=== PATIENT | female | born 1930 | race Caucasian/White ===

== ENCOUNTER → 2016-05-27 | Outpatient (REF) | payer MEDICARE, MEDICAID ==
[~2016-05-27] MED LIST: /AMLO25TA OR; ALEN70TA39 PO; AMLO5TAB2 PO; CAPE1TAB2 PO; CIPR500T89 PO; COLA100C PO; DIOV320T PO; DITR5TAB PO; DOCU10CA PO; FLAG500T PO; FLEETOIL PR; MAPA325T2 PO; MICR10CA PO; MILKSUS PO; MIRA3350 PO; MULTTAB63 PO; ONDA1TAB15 PO; OXYB5TAB PO; PANT40TA2 PO; PEG1POW PO; PIND10TA PO; TUMS500C PO; TYLE650T35 PO; VITA100072 PO; VITA50003 PO; VITA500047 PO
[2016-05-27 08:48] LABS: BASO # 0.1 K/mm3 (0.0-0.2); BASO % 1.2 % (0.0-1.0); EOS # 0.2 K/mm3 (0.0-0.50); EOS % 3.9 % (0.0-3.0); LARGE UNSTAINED CELL # 0.1 K/mm3 (0.0-0.4); LARGE UNSTAINED CELL % 1.7 % (0.0-4.0); LYMPH # 0.6 K/mm3 (1.5-4.5); LYMPH % 10.6 % (24.0-44.0); MEAN CORPUSCULAR HEMOGLOBIN 27.7 pg (27.0-33.0); MEAN CORPUSCULAR HGB CONC 31.4 g/dl (32.0-36.5); MEAN CORPUSCULAR VOLUME 88.2 fl (80.0-96.0); MONO # 0.3 K/mm3 (0.0-0.8); MONO % 6.1 % (0.0-5.0); NEUTROPHILS # 3.8 K/mm3 (1.8-7.7); NEUTROPHILS % 76.6 % (36.0-66.0); PLATELET COUNT, AUTOMATED 252 k/mm3 (150-450); RED CELL DISTRIBUTION WIDTH 17.2 % (11.5-14.5)
== END | disposition home or self-care (01) ==
LOC: SKLAB6 07:00
PROVIDERS: ATTEND Family Medicine
DX: K62.5 Hemorrhage of anus and rectum (principal)

== ENCOUNTER → 2016-06-19 | Outpatient (REF) | payer MEDICARE, MEDICAID | END | disposition home or self-care (01) | LOC: SKLAB6 15:20 | PROVIDERS: ATTEND Family Medicine | DX: R19.7 Diarrhea, unspecified (principal) ==

== ENCOUNTER → 2016-06-24 | Outpatient (REF) | payer MEDICARE, MEDICAID ==
[2016-06-24 08:34] LABS: BASO % 0.5 % (0.0-1.0); EOS # 0.2 K/mm3 (0.0-0.50); LARGE UNSTAINED CELL # 0.1 K/mm3 (0.0-0.4); LARGE UNSTAINED CELL % 1.7 % (0.0-4.0); LYMPH # 0.6 K/mm3 (1.5-4.5); LYMPH % 9.9 % (24.0-44.0); MEAN CORPUSCULAR HEMOGLOBIN 28.5 pg (27.0-33.0); MEAN CORPUSCULAR HGB CONC 31.5 g/dl (32.0-36.5); MEAN CORPUSCULAR VOLUME 90.5 fl (80.0-96.0); MONO # 0.3 K/mm3 (0.0-0.8); MONO % 5.4 % (0.0-5.0); NEUTROPHILS # 4.1 K/mm3 (1.8-7.7); NEUTROPHILS % 79.5 % (36.0-66.0); PLATELET COUNT, AUTOMATED 241 k/mm3 (150-450); RED CELL DISTRIBUTION WIDTH 15.9 % (11.5-14.5); WHITE BLOOD COUNT 5.1 K/mm3 (4.0-10.0)
== END | disposition home or self-care (01) ==
LOC: SKLAB6 07:00
PROVIDERS: ATTEND Family Medicine
DX: K62.5 Hemorrhage of anus and rectum (principal)

== ENCOUNTER → 2016-10-21 | Outpatient (REF) | payer MEDICARE, MEDICAID ==
[~2016-10-21] MED LIST changes: -COLA100C PO; +COLA100C3 PO
[2016-10-21 09:59] LABS: MEAN CORPUSCULAR HEMOGLOBIN 26.5 pg (27.0-33.0); MEAN CORPUSCULAR HGB CONC 31.3 g/dl (32.0-36.5); MEAN CORPUSCULAR VOLUME 84.5 fl (80.0-96.0); RED CELL DISTRIBUTION WIDTH 15.6 % (11.5-14.5); WHITE BLOOD COUNT 5.6 K/mm3 (4.0-10.0)
[2016-10-21 10:16] LABS: CALCIUM LEVEL 8.7 MG/DL (8.8-10.2)
== END ==
LOC: SKLAB6 08:00
PROVIDERS: ATTEND Family Medicine
DX: Z51.81 Encounter for therapeutic drug level monitoring (principal); Z79.899 Other long term (current) drug therapy

== ENCOUNTER → 2016-11-13 | Outpatient (REF) | payer MEDICARE, MEDICAID ==
[~2016-11-13] MED LIST changes: +BISA10SU4 PR; -COLA100C3 PO; +COLA100C5 PO; +ENEM1ENE4 PR; +FEVE650S3 PR; +LEXA1TAB2 PO; -ONDA1TAB15 PO; +ONDA4TAB5 PO; +PERC5TAB12 PO; +PROC25SU24 PR; +PROTPAK PO; +SENN8.6T54 PO; +TYLE325T5 PO; +TYLE500T78 PO; +VITA1CAP40 PO; -VITA50003 PO; +ZOFR20TA PO; +ZOFR4TAB3 PO
[2016-11-13 07:00] LABS: MEAN CORPUSCULAR HEMOGLOBIN 25.6 pg (27.0-33.0); MEAN CORPUSCULAR HGB CONC 30.9 g/dl (32.0-36.5); MEAN CORPUSCULAR VOLUME 82.6 fl (80.0-96.0); RED CELL DISTRIBUTION WIDTH 16.3 % (11.5-14.5); WHITE BLOOD COUNT 7.2 K/mm3 (4.0-10.0)
[2016-11-13 07:20] LABS: CREATININE FOR GFR 1.13 MG/DL (0.55-1.02); GLOMERULAR FILTRATION RATE 48.6 (>32); POTASSIUM SERUM 3.6 MEQ/L (3.5-5.1)
== END ==
LOC: M LAB 01:05
PROVIDERS: ATTEND Family Medicine
DX: R50.9 Fever, unspecified (principal); R61 Generalized hyperhidrosis; R09.02 Hypoxemia

== ENCOUNTER → 2016-11-13 | Outpatient (REF) ==
--- NOTE | 2016-11-13 10:10 | REP ---
Clinical: Hypoxemia . Comparison: 04/21/2016 . Technique: Portable AP semiupright view Findings: The mediastinum and cardiac silhouette are normal. The lung cesar demonstrate diffuse chronic interstitial changes without acute consolidation, effusion, or pneumothorax. Previously identified 10 mm nodule in the right mid lung zone is not visualized by current examination. The skeletal structures are intact and normal. Impression: 1. No acute cardiopulmonary process. Signed by Abdon Haynes MD 11/13/2016 10:01 A
== END ==
LOC: SKLAB6 09:14 → M RAD 09:14
PROVIDERS: ATTEND Family Medicine
DX: R50.9 Fever, unspecified (principal)

== ENCOUNTER → 2016-11-14 | Outpatient (REF) | LOC: SKLAB6 14:24 | PROVIDERS: ATTEND Family Medicine | DX: R71.8 Other abnormality of red blood cells (principal) ==

== ENCOUNTER → 2016-11-14 | Outpatient (REF) | payer MEDICARE, MEDICAID | LOC: SKLAB6 02:06 | PROVIDERS: ATTEND Family Medicine | DX: D64.9 Anemia, unspecified (principal) ==

== ENCOUNTER 2016-11-15 10:10 | Outpatient (REF) ==
[~2016-11-15] VITALS: Ht 152.4 cm; Wt 47.8 kg
[2016-11-15] VITALS (8 sets, daily range): BP systolic 119–153; BP diastolic 52–64
[~2016-11-15 10:10] MED LIST changes: +ACETAMINOPHEN TAB 650MG DOSE (2X325MG) PO SCH; -BISA10SU4 PR; -ENEM1ENE4 PR; -FEVE650S3 PR; -LEXA1TAB2 PO; -PERC5TAB12 PO; -PROC25SU24 PR; -PROTPAK PO; -SENN8.6T54 PO; -TYLE325T5 PO; -TYLE500T78 PO; -ZOFR20TA PO; -ZOFR4TAB3 PO; +diphenhydrAMINE 25 MG CAP PO SCH
[2016-11-15] MEDS: FUROSEMIDE 20 MG/2 ML VIAL (J1940) IV SCH ×2 (12:44→14:33)
[2017-03-17] MEDS ORDERED: PROC25SU24 PR (19:37)
[2017-03-17] MEDS ORDERED: TYLE325T5 PO (19:37)
[2017-03-17] MEDS ORDERED: PROTPAK PO (19:37)
[2017-03-17] MEDS ORDERED: MILKSUS PO (19:37)
[2017-03-17] MEDS ORDERED: TUMS500C PO (19:37)
[2017-03-17] MEDS ORDERED: ZOFR20TA PO (19:37)
[2017-03-17] MEDS ORDERED: ZOFR4TAB3 PO (19:37)
[2017-03-17] MEDS ORDERED: FEVE650S3 PR (19:37)
[2017-03-17] MEDS ORDERED: TYLE500T78 PO (19:37)
[2017-03-17] MEDS ORDERED: LEXA1TAB2 PO (19:37)
[2017-03-17] MEDS ORDERED: SENN8.6T54 PO (19:37)
[2017-03-17] MEDS ORDERED: ENEM1ENE4 PR (19:37)
[2017-03-17] MEDS ORDERED: BISA10SU4 PR (19:37)
[2017-03-17] MEDS ORDERED: PERC5TAB12 PO (21:38)
== END 2016-11-15 15:51 ==
LOC: M OPCLI4PV 10:10 → M MSPAV 10:17 → M OPCLI4PV 15:51
PROVIDERS: ATTEND Family Medicine
DX: D64.9 Anemia, unspecified (principal); Z88.2 Allergy status to sulfonamides; Z88.8 Allergy status to other drugs, medicaments and biological substances

== ENCOUNTER → 2016-11-17 | Outpatient (REF) | payer MEDICARE, MEDICAID ==
[~2016-11-17] MED LIST changes: -ACETAMINOPHEN TAB 650MG DOSE (2X325MG) PO SCH; +BISA10SU4 PR; +ENEM1ENE4 PR; +FEVE650S3 PR; +LEXA1TAB2 PO; +PERC5TAB12 PO; +PROC25SU24 PR; +PROTPAK PO; +SENN8.6T54 PO; +TYLE325T5 PO; +TYLE500T78 PO; +ZOFR20TA PO; +ZOFR4TAB3 PO; -diphenhydrAMINE 25 MG CAP PO SCH
== END ==
LOC: SKLAB6 08:00
PROVIDERS: ATTEND Nurse Practitioner Adult Health
DX: Z08 Encounter for follow-up examination after completed treatment for malignant neoplasm (principal); Z85.038 Personal history of other malignant neoplasm of large intestine

== ENCOUNTER → 2017-01-11 | Outpatient (REF) | payer MEDICARE, MEDICAID ==
--- NOTE | 2017-01-11 16:27 | REP ---
Supine KUB. Single view: History: Vomiting. Comparison study: 10/18/2012. Findings: A moderate dextroconvex lumbar spine curvature is seen unchanged. The patient is status post abdominal hernia repair with clips in the pelvis unchanged. Bowel gas pattern is unremarkable. Impression: Unremarkable bowel gas pattern. Postoperative changes in the pelvis. A dextroconvex lumbar scoliosis. Signed by Ced Waite MD 01/11/2017 05:22 P
== END ==
LOC: SKLAB6 11:22
PROVIDERS: ATTEND Family Medicine
DX: M41.9 Scoliosis, unspecified (principal)

== ENCOUNTER → 2017-01-18 | Outpatient (REF) | payer MEDICARE, MEDICAID ==
[2017-01-18 09:09] LABS: ANION GAP 8 MEQ/L (8-16); BLOOD UREA NITROGEN 16 MG/DL (7-18); CALCIUM LEVEL 8.3 MG/DL (8.8-10.2); CARBON DIOXIDE LEVEL 29 MEQ/L (21-32); CHLORIDE LEVEL 103 MEQ/L (98-107); CREATININE FOR GFR 0.93 MG/DL (0.55-1.02); GLOMERULAR FILTRATION RATE > 60.0 (>32); GLUCOSE, FASTING 84 MG/DL (83-110); POTASSIUM SERUM 3.7 MEQ/L (3.5-5.1); SODIUM LEVEL 140 MEQ/L (136-145)
== END ==
LOC: SKLAB6 08:00
PROVIDERS: ATTEND Family Medicine
DX: D64.9 Anemia, unspecified (principal)

== ENCOUNTER → 2017-02-21 | Outpatient (REF) | payer MEDICARE, MEDICAID ==
--- NOTE | 2017-02-21 21:10 | REPUSA ---
Clinical history: Pain. Findings: 4 views of the right elbow were obtained. There is an acute transverse fracture through the olecranon process of the proximal ulna. No angulation of displacement is noted. The beer posterior s oft tissue swelling is seen. There is an anterior and posterior joint effusion. Impression: Acute nondisplaced fracture of the olecranon process of the proximal ulna. Severe surroun ding soft tissue swelling as well as joint effusions.
== END ==
LOC: SKLAB6 20:24
PROVIDERS: ATTEND Family Medicine
DX: S52.024A Nondisplaced fracture of olecranon process without intraarticular extension of right ulna, initial encounter for closed fracture (principal); M25.421 Effusion, right elbow; W19.XXXA Unspecified fall, initial encounter; X58.XXXA Exposure to other specified factors, initial encounter; Y92.129 Unspecified place in nursing home as the place of occurrence of the external cause; Y93.9 Activity, unspecified; Y99.8 Other external cause status